=== PATIENT | female | born 1970 | race Caucasian/White ===

== ENCOUNTER 2016-10-27 20:52 | Emergency (ER) | payer OTHER ==
[~2016-10-27] VITALS: Ht 162.6 cm; Wt 56.7 kg
[~2016-10-27 20:52] MED LIST: ACYCLOVIR800 M1 PO; BACLOFEN10 M1 PO; BACTRIM DS 8001 TAB PO; BENZONATATE200 MG PO; BIAXIN FILMTAB500 MG PO; BIAXIN XL500 MG PO; BIAXIN250 MG PO; BIAXIN500 M1 PO; CELECOXIB100 MG; CICLOPIROX0.771 TOP; CYCLOBENZAPRINE10 M2 PO; DOLOPHINE10 MG PO; DULOXETINE60 MG PO; GABAPENTIN TAB600 MG PO; GABAPENTIN300 MG PO; LEVAQUIN 500MG500 MG PO; LEVAQUIN500 M1 PO; LEVAQUIN500 MG PO; LEVAQUIN750 MG PO; LIORESAL PO; MACROBID100 MG PO; MECLIZINE HCL25 MG PO; MELOXICAM7.5 M1 PO; METFORMIN HCL500 MG PO; METFORMIN500 MG PO; MORPHINE SULFAT15 M4 PO; MORPHINE SULFAT30 M3 PO; NORCO 325 MG-51 TAB PO; NORTRIPTYLINE H10 M2 PO; NUCYNTA50 MG; PERCOCET 325 MG1 TA2 PO; PERCOCET 325 MG1 TAB PO; PRAMIPEXOLE0.125 MG PO; TYLENOL ARTHRI650 M1 PO; VALACYCLOVIR1 GM PO; VALIUM 10 MG. T10 MG PO; VALIUM2 MG PO; VALIUM5 M1 PO; VALTREX1 GM PO; VITAMIN D1000 UNIT; VOLTAREN GEL1% TOP; ZOFRAN ODT4 MG PO; ZOFRAN4 M1 PO; ZOVIRAX800 MG PO
[2016-10-27 20:56] VITALS: BP 146/98
--- NOTE | 2016-10-27 21:15 | ED EAR COMPLAINT ---
History of Present Illness General Chief Complaint: Ear Complaints Stated Complaint: L EAR ACHE Source: patient Exam Limitations: no limitations Vital Signs & Intake/Output Vital Signs & Intake/Output Vital Signs Date Time Temp Pulse Resp B/P Pulse O2 O2 Flow FiO2 Ox Delivery Rate 10/278 100 Room Air 10/27 2055 100.4 95 18 146/98 100 Room Air Allergies Coded Allergies: Penicillins (Severe, HIVES 07/26/16) aspirin (Severe, ANAPHYLAXIS 07/26/16) codeine (Severe, ANAPHYLAXIS 07/26/16) Reconcile Medications Acetaminophen (Tylenol Arthritis) 650 MG TABLET.ER 1 TAB PO Q4-6 PRN PRN PAIN/ FEVER (Reported) Acyclovir 800 MG TABLET 1 TAB PO 5 TIMES A DAY shingles Baclofen 10 MG TABLET 1 TAB PO TID PAIN (Reported) Cholecalciferol (Vitamin D3) (Vitamin D) (Unknown Strength) TABLET (Unknown Dose) SUPPLEMENT (Reported) Clarithromycin (Biaxin) 250 MG TABLET 1 TAB PO BID otitis Clarithromycin (Biaxin) 500 MG TABLET 1 TAB PO BID otitis media Clarithromycin (Biaxin) 250 MG TABLET 1 TAB PO BID OTITIS MEDIA Gabapentin (Gabapentin Tab 600MG) 600 MG TAB 1 TAB PO BID PAIN (Reported) Gabapentin (Gabapentin Tab 600MG) 600 MG TAB 2 TAB PO QPM PAIN (Reported) Levofloxacin (Levaquin) 500 MG TABLET 1 TAB PO DAILY ear infection Meclizine HCl 25 MG TABLET 1 TAB PO TIDPRN PRN dizzness Meloxicam 7.5 MG TABLET 1 TAB PO BID PAIN (Reported) Metformin Hydrochloride (Metformin HCl) 500 MG TAB 1 TAB PO BID DIABETES ( Reported) Morphine Sulfate 15 MG TABLET 1 TAB PO TID PAIN (Reported) Morphine Sulfate (Morphine Sulfate ER) 30 MG TABLET.ER 1 TAB PO DAILY PAIN ( Reported) Nortriptyline HCl 10 MG CAPSULE 1 CAP PO QPM INSOMNIA (Reported) Triage Note: PT TO TRIAGE WITH C/O BILAT EAR PAIN x2DAYS 04/15. 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 HX OF OTITIS x10 A YEAR. TEMP 100.4 IN TRIAGE. Triage Nurses Notes Reviewed? 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 Patient states that symptoms are very similar to previous otitis media. Denies any active discharge and tympanic membrane is intact no trauma no fever chills difficulty swallowing or breathing Past History Travel History Traveled to [place] past 21 day No Medical History Any Pertinent Medical History? 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 No Review of Systems Review of Systems Constitutional: Reports: no symptoms. EENTM: Reports: see HPI, ear pain. Respiratory: Reports: no symptoms. Cardiovascular: Reports: no symptoms. GI: Reports: no symptoms. Genitourinary: Reports: no symptoms. Musculoskeletal: Reports: no symptoms. Skin: Reports: no symptoms. Neurological/Psychological: Reports: no symptoms. Hematologic/Endocrine: Reports: no symptoms. Immunologic/Allergic: Reports: see HPI, lymphadenopathy. All Other Systems: Reviewed and Negative Physical Exam Physical Exam General Appearance: no apparent distress, alert, comfortable Ears: Left: discharge, swelling. Comments: Well-developed well-nourished person in no acute distress HEENT: , extraocular motion intact, no nystagmus. Pupils equally round and reactive to light and accommodation. Nose is atraumatic.No swelling or edema. Right ear nontender external anatomy, unremarkable external auditory canal tympanic membrane was partially visualized due to cerumen impaction noted to be within normal limits. Left ear-nontender external anatomy noted removed external auditory canal with visualization apparent to tympanic membrane in which purulence was noted. And panic membrane was intact. Neck: Supple, mild left anterior cervical adenopathy noted, normal range of motion without pain or tenderness Back: Nontender, no CVA tenderness. Cardiovascular: Regular rate and rhythms no murmurs rubs or gallops, normal JVP Respiratory: Chest nontender. No respiratory distress.breath sounds clear to auscultation bilaterally Extremity: No edema, no calf tenderness to palpation, normal and equal pulses. Neuro: Alert oriented x3, motor sensory normal, Skin: No appreciable rash on exposed skin, skin is warm and dry. Psych: Mood and affect is normal, memory and judgment is normal. Progress Differential Diagnoses I considered the following diagnoses in my evaluation of the patient: [Otitis media, otitis externa, sinusitis, pharyngitis, mastoiditis, tympanic membrane rupture, labyrinthitis, meningitis] Plan of Care: Due to history of present illness and exam findings patient has suspicion of left-sided otitis media. Patient states that Biaxin usually resolves patient's symptoms no concerns at this time of meningitis or tympanic membrane rupture patient was strongly advised to follow up with ENT Initial ED EKG: none Departure Departure Disposition: HOME OR SELF CARE Condition: Stable Clinical Impression Primary Impression: Left otitis media Referrals: FARZAD CHAKRABORTY DO (PCP/Family) Additional Instructions: As discussed begin the prescription of Biaxin as directed for the full course. Prescriptions waiting at [facility] pharmacy. Follow up this week with your established ENT DR. CHATMAN for further evaluation treatment. If symptoms worsen return to emergency room. Begin [id number] ibuprofen or Tylenol for pain and inflammation and fevers. Departure Forms: Customer Survey General Discharge Information Prescriptions: Current Visit Scripts Clarithromycin (Biaxin) 1 TAB PO BID #14 TAB
[2016-10-27] MEDS ORDERED: BIAXIN250 MG PO (21:55)
== END 2016-10-27 22:18 ==
LOC: ERH 20:52
DX: H66.92 Otitis media, unspecified, left ear (principal)

== ENCOUNTER 2016-11-10 19:18 | Emergency (ER) | payer OTHER ==
[~2016-11-10] VITALS: Ht 162.6 cm; Wt 68.0 kg
[2016-11-10 19:26] VITALS: BP 135/87
--- NOTE | 2016-11-10 20:02 | ED GENERAL ADULT ---
History of Present Illness General Chief Complaint: General Adult Stated Complaint: PT HAS EAR PAIN AND SWOLLEN GLANDS AND DIZZY Source: patient, family, old records Exam Limitations: no limitations Vital Signs & Intake/Output Vital Signs & Intake/Output Vital Signs Date Time Temp Pulse Resp B/P Pulse O2 O2 Flow FiO2 Ox Delivery Rate 11/10 1925 97.2 112 18 135/87 97 Room Air Allergies Coded Allergies: Penicillins (Severe, HIVES 07/26/16) aspirin (Severe, ANAPHYLAXIS 07/26/16) codeine (Severe, ANAPHYLAXIS 07/26/16) Reconcile Medications Baclofen 10 MG TABLET 1 TAB PO TID MUSCLE RELAXER (Reported) Clarithromycin (Biaxin) 500 MG TABLET 1 TAB PO BID ear infection Gabapentin 600 MG TABLET 1 TAB PO 4XDAILY NERVE PAIN (Reported) Meclizine HCl 25 MG TABLET 1 TAB PO Q8 PRN dizziness Meloxicam 15 MG TABLET 1 TAB PO DAILY PAIN/INFLAMMATION (Reported) Metformin HCl 500 MG TABLET 1 TAB PO BID DM (Reported) Morphine Sulfate 15 MG TABLET 1 TAB PO TID PAIN (Reported) Morphine Sulfate (Morphine Sulfate ER) 30 MG TABLET.ER 1 TAB PO DAILY PAIN ( Reported) Nortriptyline HCl 10 MG CAPSULE 1 CAP PO QPM FIBROMYALGIA (Reported) Triage Note: PT TO ED C/O SHI EAR PAIN, L>R AND SWOLLEN GLANDS ON LEFT. STARTED LAST NIGHT. FINISHED ABX LAST WEEK FOR EAR INFECTIONS. 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 yes HPI: Patient is a 46-year-old female presents complaining of bilateral ear pain, left greater than right, and dizziness. Patient reports she has chronic ear infections, was treated 2 weeks ago for an ear infection with clarithromycin. Patient reports that she felt better and then over the past couple of days symptoms have worsened. Dizziness is currently moderate to severe. Patient had a fever up to 101F over the past 24 hours. Ear pain is severe. Patient reporting swelling in the lymph nodes to the left side of her neck. Patient denies cough, dyspnea, difficulty swallowing. (ROBERT DANIEL,RANDY) Past History Travel History Traveled to [place] past 21 day No Medical History Any Pertinent Medical History? 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 No (RANDY VELAZQUEZ) Review of Systems Review of Systems Constitutional: Reports: fever, malaise. EENTM: Reports: see HPI. Respiratory: Denies: cough, short of breath. Cardiovascular: Denies: chest pain. GI: Denies: abdominal pain, vomiting. Musculoskeletal: Reports: back pain (chronic, unchanged). Skin: Reports: no symptoms. Neurological/Psychological: Reports: headache. Hematologic/Endocrine: Denies: bruising, bleeding. Immunologic/Allergic: Reports: lymphadenopathy. (RANDY VELAZQUEZ) Physical Exam Physical Exam General Appearance: well developed/nourished, alert, awake Head: atraumatic Eyes: Bilateral: normal appearance, PERRL, EOMI. Ears, Nose, Throat: deformity of the left external auditory canal with mild erythema. Right external auditory canal and tympanic membrane normal Neck: supple, full range of motion, left anterior cervical lymphadenopathy Respiratory: normal breath sounds, chest non-tender, no respiratory distress, lungs clear Cardiovascular: tachycardia (regular rhythm, no murmur) Back: normal inspection, normal range of motion Extremities: normal inspection, normal capillary refill, normal range of motion, no edema Neurologic/Psych: awake, alert, oriented x 3, normal gait, normal mood/affect Skin: warm/dry Lymphatic: adenopathy (left anterior cervical) Core Measures ACS in differential dx? No CVA/TIA Diagnosis: No Severe Sepsis Present: No Septic Shock Present: No (RANDY VELAZQUEZ) Progress Differential Diagnoses I considered the following diagnoses in my evaluation of the patient: Otitis media, otitis externa, mastoiditis Plan of Care: Current Medications Sig/Nader Start time Last Medication Dose Stop Time Status Admin Meclizine HCl 25 MG ONCE ONE 11/10 2014 UNVr (Antivert) 11/11 2015 Patient reports that with penicillin she gets hives, swelling, dyspnea. Cephalosporins deferred secondary to this reaction. Discussed with patient using Levaquin which she has used in the past. Patient reports that she has episodes of lightheadedness and feels like she is going to pass out the last couple of times she has taken Levaquin. Will start on a higher dose of clarithromycin and a longer course of treatment, appears stable for discharge. (RANDY VELAZQUEZ) Initial ED EKG: none (RANDY VELAZQUEZ) Departure Departure Time of Disposition: 2012 Disposition: HOME OR SELF CARE Condition: Stable Clinical Impression Primary Impression: Ear infection Referrals: LURDES LINDA,FARZAD WOO DO (PCP/Family) Additional Instructions: Follow-up with your ear nose and throat doctor within 1 week for recheck and further evaluation. Call in the morning for appointment. Return to the emergency department if worsening of symptoms. 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 I have also reviewed all the pertinent lab results and diagnostic results. I agree with the findings and the plan of care as documented in the PA's/SHOP TAILOR's documentation. [X] I have reviewed the ED Record and agree with the PA's/SHOP TAILOR's documentation. [] Additions or exceptions (if any) to the PAs/SHOP TAILOR's note and plan are summarized below: [] (PAMELA LINDA,SHANNAN Lozano) Critical Care Note Critical Care Note Critical Care Time: non-applicable (RANDY VELAZQUEZ)
[2016-11-10] MEDS ORDERED: MORPHINE SULFAT15 M4 PO (20:07)
[2016-11-10] MEDS ORDERED: BACLOFEN10 M1 PO (20:07)
[2016-11-10] MEDS ORDERED: MORPHINE SULFAT30 M3 PO (20:07)
[2016-11-10] MEDS ORDERED: MELOXICAM15 M1 PO (20:07)
[2016-11-10] MEDS ORDERED: NORTRIPTYLINE H10 M2 PO (20:08)
[2016-11-10] MEDS ORDERED: METFORMIN HCL500 M3 PO (20:08)
[2016-11-10] MEDS ORDERED: GABAPENTIN600 M1 PO (20:09)
[2016-11-10] MEDS ORDERED: BIAXIN500 M1 PO (20:14)
[2016-11-10] MEDS ORDERED: MECLIZINE HCL25 MG PO (20:15)
== END 2016-11-10 20:27 ==
LOC: ERH 19:18
DX: H60.92 Unspecified otitis externa, left ear (principal)

== ENCOUNTER 2016-12-05 13:53 | Emergency (ER) | payer OTHER ==
[~2016-12-05] VITALS: Ht 162.6 cm; Wt 56.7 kg
[~2016-12-05 13:53] MED LIST changes: +GABAPENTIN600 M1 PO; +MELOXICAM15 M1 PO; +METFORMIN HCL500 M3 PO
[2016-12-05 15:19] LABS: ABSOLUTE BASOPHIL COUNT 0 /CUMM (0.0-0.2); ABSOLUTE EOSINOPHIL COUNT 0.1 /CUMM (0.0-0.7); ABSOLUTE GRANULOCYTE CT 3.4 /CUMM (1.4-6.5); ABSOLUTE LYMPH COUNT 2.5 /CUMM (1.2-3.4); ABSOLUTE MONOCYTE COUNT 0.4 /CUMM (0.10-0.60); BASOPHIL % 0.3 % (0.0-2.0); EOSINOPHIL % 1.3 % (0-5); HEMATOCRIT 43.9 % (37-47); MEAN CORPUSCULAR HGB CONC 32.3 G/DL (33.0-37.0); MEAN CORPUSCULAR VOLUME 83.8 FL (81.0-99.0); MEAN PLATELET VOLUME 8.1 FL (7.4-10.4); PLATELET COUNT 148 /CUMM (130-400); RBC DISTRIBUTION WIDTH 14.1 % (11.5-14.5); RED BLOOD CELL CT 5.24 /CUMM (4.20-5.40); WHITE BLOOD CELL COUNT 6.5 /CUMM (4.8-10.8)
--- NOTE | 2016-12-05 16:08 | ED EAR COMPLAINT ---
History of Present Illness General Chief Complaint: Ear Complaints Stated Complaint: SWOLLEN GLANDS, EARS HURT Source: patient, family Exam Limitations: no limitations Vital Signs & Intake/Output Vital Signs & Intake/Output Vital Signs Date Time Temp Pulse Resp B/P Pulse O2 O2 Flow FiO2 Ox Delivery Rate 12/05 1646 99.1 110 16 138/76 95 Room Air 12/05 1356 97.6 88 18 139/90 99 Room Air Room Air Allergies Coded Allergies: Penicillins (Severe, HIVES 07/26/16) aspirin (Severe, ANAPHYLAXIS 07/26/16) codeine (Severe, ANAPHYLAXIS 07/26/16) Reconcile Medications Baclofen 10 MG TABLET 1 TAB PO TID MUSCLE RELAXER (Reported) Clindamycin HCl 300 MG CAPSULE 1 CAP PO TID otitis media Gabapentin 600 MG TABLET 1 TAB PO 4XDAILY NERVE PAIN (Reported) Meclizine HCl 25 MG TABLET 1 TAB PO Q8 PRN dizziness Meclizine HCl 25 MG TABLET 1 TAB PO TIDPRN PRN vertigo Meloxicam 15 MG TABLET 1 TAB PO DAILY PAIN/INFLAMMATION (Reported) Metformin HCl 500 MG TABLET 1 TAB PO BID DM (Reported) Morphine Sulfate 15 MG TABLET 1 TAB PO TID PAIN (Reported) Morphine Sulfate (Morphine Sulfate ER) 30 MG TABLET.ER 1 TAB PO DAILY PAIN ( Reported) Nortriptyline HCl 10 MG CAPSULE 1 CAP PO QPM FIBROMYALGIA (Reported) Triage Note: TRIAGE: 46 Y/O FEMALE PRESENTS C/O 12.5/10 LEFT EAR PAIN. HISTORY OF LEFT EAR SURGERY - "NO MIDDLE EAR, NO EAR DRUM. 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 I KNOW I HAVE AN INFECTION NOW." Triage Nurses Notes Reviewed? yes HPI: Ms. Roblero is a 46 yo f w/ extensive medical history most significant for multiple years surgeries on the left involving the middle ear secondary to tumor presenting to the emergency department for L ear pain. She states she has recurrent ear infections on the left. Patient states that over the past 3 days she's had increased pain in the left ear, some mild discharge and subjective fevers and chills. Patient also endorses some tender anterior cervical lymphadenopathy as well as tenderness over the mastoid bone. Patient states she is multiple allergies and the only antibiotics that typically work for her is that by Bicillin, clindamycin, levofloxacin. However, last time she took levofloxacin, she endorses some dizziness associated with it. She denies chest pain, cough, diarrhea pain, nausea, vomiting, diarrhea. (JUAN COWAN MD) Past History Travel History Traveled to [place] past 21 day No Medical History Any Pertinent Medical History? 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 No (JUAN COWAN MD) Review of Systems Review of Systems Constitutional: Reports: chills, fever. EENTM: Reports: ear discharge, ear pain, hearing changes. Respiratory: Reports: no symptoms. Cardiovascular: Reports: no symptoms. GI: Reports: no symptoms. Genitourinary: Reports: no symptoms. Musculoskeletal: Reports: no symptoms. Skin: Reports: no symptoms. Neurological/Psychological: Reports: no symptoms. Hematologic/Endocrine: Reports: no symptoms. Immunologic/Allergic: Reports: no symptoms. All Other Systems: Reviewed and Negative (JUAN COWAN MD) Physical Exam Physical Exam General Appearance: well developed/nourished, mild distress Head: atraumatic, L mastoid TTP Eyes: Bilateral: normal appearance, PERRL, EOMI. Ears: Left: discharge, tenderness, other (s/p middle ear/typanum excisio). Right: canal normal, Tympanic normal. Mouth/Throat: normal mouth inspection, pharynx normal, L anterior cervical adenopathy and TTP Neck: normal inspection, supple Cardiovascular/Respiratory: normal breath sounds, regular rate/rhythm Gastrointestinal: soft, nontender Back: normal inspection Neurologic/Psych: awake, alert, oriented x 3, normal mood/affect Skin: intact, normal color, warm/dry (JUAN COWAN MD) Progress Differential Diagnoses I considered the following diagnoses in my evaluation of the patient: otitis media, otitis externa, mastoiditis, intracranial infection, meningitis Plan of Care: Orders Procedure Date/time Status CBC WITHOUT DIFFERENTIAL 12/05 145 Complete BASIC METABOLIC PANEL 12/05 1458 Complete Laboratory Tests 12/05/16 1510: Anion Gap 13, Estimated GFR > 60, BUN/Creatinine Ratio 8.6, Glucose 304 H, Calcium 10.1, CBC w Diff NO MAN DIFF REQ, RBC 5.24, MCV 83.8, MCH 27.0, RDW 14.1 , MPV 8.1, Gran % 53.0, Lymphocytes % 39.2, Monocytes % 6.2, Eosinophils % 1.3, Basophils % 0.3, Absolute Granulocytes 3.4, Absolute Lymphocytes 2.5, Absolute Monocytes 0.4, Absolute Eosinophils 0.1, Absolute Basophils 0, PUBS MCHC 32.3 L Patient is generally well-appearing with abnormal ear anatomy given her extensive surgical history in the left ear. She does not have a tympanic membrane or middle ear bones. How however on the inner portion more medial surface superiorly, there is noted to have some pale right serosanguineous fluid with some exudative quality. Patient also had tenderness over the mastoid bone as well as some significant anterior cervical adenopathy which is also tender. Normal oral exam and posterior pharynx without evidence of pharyngitis or uvular deviation. Patient has completed completely normal range of motion of her neck without any pain or stiffness. Patient is borderline febrile here however believe this is related to her otitis media. Initially the patient refused the CT scan and wanted to leave AGAINST MEDICAL ADVICE. After I spoke to her as well as , patient still continued to refuse CT. However, her discussed it with her yet again in the waiting room and convinced her to come back inside to obtain the CT and rule out a serious intracranial infection. CT obtained and does not show any evidence of mastoiditis or other fluid collections concerning for spread of l infection. Patient later endorsed some mild episodic vertigo that happens over the past week. She says she is taking meclizine before when she develops vertigo secondary to her ongoing problems and it has worked well for her. Patient given antibiotics clindamycin for 2 weeks with instructions to follow up with her ENT in approximately one week. Patient also given a prescription for meclizine for episodic vertigo. (CHAPO LINDA,JUAN) Initial ED EKG: none (JUAN COWAN MD) Departure Departure Time of Disposition: 1645 Disposition: HOME OR SELF CARE Condition: Stable Clinical Impression Primary Impression: Left acute otitis media Referrals: PALMER DELEON,FARZAD Keys (PCP/Family) Additional Instructions: Take the full course of antibiotics as prescribed. Given her extensive surgical history and repeated ear infection, we have given you a longer course of antibiotics for a total of 2 weeks. I would recommend that you follow-up with your ENT in approximately 1 week from today. If you have worsening pain, headache, changes in vision or weakness, please return to the emergency department for further evaluation. Departure Forms: Customer Survey General Discharge Information Prescriptions: Current Visit Scripts Clindamycin HCl 1 CAP PO TID 14 Days Meclizine HCl 1 TAB PO TIDPRN PRN vertigo #20 TAB (JUAN COWAN MD) Resident Co-Sign Statement Statement: ED Attending supervision documentation- x I saw and evaluated the patient. I have also reviewed all the pertinent lab results and diagnostic results. I agree with the findings and the plan of care as documented in the Resident's documentation. [] I have reviewed the ED Record and agree with the Resident's documentation. [] Additions or exceptions (if any) to the Resident's note and plan are summarized below: [] (MELISSA LINDA,ARMANDO)
--- NOTE | 2016-12-05 16:35 | CT SCAN REPORT ---
EXAMINATION: CT HEAD WITHOUT CONTRAST CLINICAL INFORMATION: Left-sided ear pain, swelling and tenderness to palpation over the mastoid bone. History of prior left-sided extensive mastoidectomy. COMPARISON: MRI brain without contrast 05/07/2010. TECHNIQUE: Contiguous axial imaging was performed from the skull base to vertex without intravenous administration of contrast. No intravenous contrast was administered. The patient reportedly has a contrast allergy and refused intravenous contrast. DLP: 600 mGy-cm FINDINGS: No acute intracranial abnormality. No acute intracranial hemorrhage, mass or mass effect or abnormal extra-axial fluid collections. The density within the dural venous sinuses is within normal limits. The ventricles are normal in size, without hydrocephalus. There are no focal areas of hypoattenuation within a vascular distribution to suggest acute transcortical ischemia. The basilar cisterns are patent. Evaluation of the calvarium demonstrates postsurgical changes related to prior left-sided mastoidectomy. There is no significant overlying soft tissue swelling or skin thickening. There are no visible subcutaneous fluid collections along the left temporal bone. No visible cortical destruction or significant periosteal reaction is identified. No acute calvarial abnormality is identified. The imaged paranasal sinuses and right-sided mastoid air cells are well aerated. IMPRESSION: No acute intracranial abnormality. Postsurgical changes related to prior left-sided mastoidectomy. No significant soft tissue swelling or overlying skin thickening. No visible subcutaneous fluid collections adjacent to or along the left temporal bone. No visible cortical destruction or significant periosteal reaction.
[2016-12-05 16:46] VITALS: BP 138/76
[2016-12-05] MEDS ORDERED: MECLIZINE HCL25 MG PO (16:49)
[2016-12-05] MEDS ORDERED: CLINDAMYCIN HC300 M1 PO (16:49)
== END 2016-12-05 16:57 ==
LOC: ERH 13:53
PROVIDERS: Emergency Medicine
DX: H66.92 Otitis media, unspecified, left ear (principal); R50.9 Fever, unspecified; R59.1 Generalized enlarged lymph nodes
CPT/HCPCS: 96374

== ENCOUNTER 2017-02-01 22:27 | Emergency (ER) | payer OTHER ==
[~2017-02-01] VITALS: Ht 165.1 cm; Wt 59.0 kg
[~2017-02-01 22:27] MED LIST changes: +CLINDAMYCIN HC300 M1 PO
--- NOTE | 2017-02-01 22:47 | ED EAR COMPLAINT ---
History of Present Illness General Chief Complaint: Ear Complaints Stated Complaint: EAR PAIN Source: patient Exam Limitations: no limitations Vital Signs & Intake/Output Vital Signs & Intake/Output Vital Signs Date Time Temp Pulse Resp B/P B/P Pulse O2 O2 Flow FiO2 Mean Ox Delivery Rate 02/01 2313 98.2 80 17 144/80 98 Room Air Room Air ED Intake and Output 02/02 0000 02/01 1200 Intake Total 0 Output Total Balance 0 Intake, Oral 0 Patient 130 lb Weight Allergies Coded Allergies: Penicillins (Severe, HIVES 02/01/17) aspirin (Severe, ANAPHYLAXIS 02/01/17) codeine (Severe, ANAPHYLAXIS 02/01/17) Reconcile Medications Baclofen 10 MG TABLET 1 TAB PO TID MUSCLE RELAXER (Reported) Clarithromycin (Biaxin) 500 MG TABLET 1 TAB PO BID OTITIS MEDIA Clindamycin HCl 300 MG CAPSULE 1 CAP PO TID otitis media Gabapentin 600 MG TABLET 1 TAB PO 4XDAILY NERVE PAIN (Reported) Meclizine HCl 25 MG TABLET 1 TAB PO Q8 PRN dizziness Meclizine HCl 25 MG TABLET 1 TAB PO TIDPRN PRN vertigo Meclizine HCl 25 MG TABLET 1 TAB PO TIDPRN PRN DIZZINESS Meloxicam 15 MG TABLET 1 TAB PO DAILY PAIN/INFLAMMATION (Reported) Metformin HCl 500 MG TABLET 1 TAB PO BID DM (Reported) Morphine Sulfate 15 MG TABLET 1 TAB PO TID PAIN (Reported) Morphine Sulfate (Morphine Sulfate ER) 30 MG TABLET.ER 1 TAB PO DAILY PAIN ( Reported) Nortriptyline HCl 10 MG CAPSULE 1 CAP PO QPM FIBROMYALGIA (Reported) Triage Note: PT TO TRIAGE WITH LEFT EAR PAIN, AND SWELLING OF GLANDS. PT HAD TUMOR REMOVED FROM EAR YEARS PRIOR AND IS SUSCEPTABLE TO EAR INFECTION, LOW GRADE FEVERS AT HOME Triage Nurses Notes Reviewed? 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 No (OZ RUBY) Review of Systems Review of Systems Constitutional: Reports: no symptoms. EENTM: Reports: see HPI, ear pain. Respiratory: Reports: no symptoms. Cardiovascular: Reports: no symptoms. GI: Reports: no symptoms. Genitourinary: Reports: no symptoms. Musculoskeletal: Reports: no symptoms. Skin: Reports: no symptoms. Neurological/Psychological: Reports: no symptoms. Hematologic/Endocrine: Reports: no symptoms. Immunologic/Allergic: Reports: no symptoms. All Other Systems: Reviewed and Negative (OZ RUBY) Physical Exam Physical Exam General Appearance: no apparent distress, alert, comfortable Ears: Left: Tympanic red. Comments: Well-developed well-nourished person in no acute distress HEENT:extraocular motion intact, no nystagmus. Pupils equally round and reactive to light and accommodation. Nose is atraumatic. LEFT EAR- NOTED EXTRACTED External auditory canal and Tympanic membranes erythematous and mild discharge. Pharynx normal. No swelling or edema. Neck: Supple, no lymphadenopathy, normal range of motion without pain or tenderness Abdomen: Soft, nontender nondistended, no appreciable organomegaly. Normal bowel sounds. No ascites Extremity: No edema, no calf tenderness to palpation, normal and equal pulses. Neuro: Alert oriented x3, motor sensory normal, Skin: No appreciable rash on exposed skin, skin is warm and dry. Psych: Mood and affect is normal, memory and judgment is normal. (OZ RUBY) Progress Differential Diagnoses I considered the following diagnoses in my evaluation of the patient: [Otitis media, otitis externa, tympanic membrane rupture, mastoiditis, sepsis] Plan of Care: At this time there is concern on physical exam findings of left otitis media. Initial ED EKG: none (OZ RUBY) Departure Departure Disposition: HOME OR SELF CARE Condition: Stable Clinical Impression Primary Impression: Left otitis media Referrals: FARZAD CHAKRABORTY DO (PCP/Family) Additional Instructions: As discussed begin the prescription of Biaxin as directed for the full course. Begin prescription meclizine for your symptoms. If symptoms worsen return to emergency room. PRESCRIPTIONS waiting at [facility]. Follow-up with the ENT doctor and neurologist as directed Departure Forms: Customer Survey General Discharge Information Prescriptions: Current Visit Scripts Clarithromycin (Biaxin) 1 TAB PO BID #20 TAB Meclizine HCl 1 TAB PO TIDPRN PRN DIZZINESS #21 TAB (OZ RUBY) PA/GRAIN CLEANER Co-Sign Statement Statement: ED Attending supervision documentation- [] I saw and evaluated the patient. I have also reviewed all the pertinent lab results and diagnostic results. I agree with the findings and the plan of care as documented in the PA's/GRAIN CLEANER's documentation. [x] I have reviewed the ED Record and agree with the PA's/GRAIN CLEANER's documentation. [] Additions or exceptions (if any) to the PAs/GRAIN CLEANER's note and plan are summarized below: [] (GERARD LINDA,CHANDU Woodard)
[2017-02-01] MEDS ORDERED: BIAXIN500 M1 PO (22:55)
[2017-02-01] MEDS ORDERED: MECLIZINE HCL25 MG PO (22:57)
[2017-02-01 23:13] VITALS: BP 144/80
== END 2017-02-01 23:13 ==
LOC: ERH 22:27
DX: H66.92 Otitis media, unspecified, left ear (principal)

== ENCOUNTER 2017-12-04 15:22 | Emergency (ER) | payer OTHER ==
[~2017-12-04 15:22] MED LIST changes: +BENTYL10 M1 PO; +OFLOXACIN5 M1 OT; +REGLAN10 M1 PO; +VITAMIN D1000 UNIT PO; +ZOFRAN4 M2 PO
[2017-12-04 15:30] VITALS: BP 131/80
[2017-12-04] MEDS ORDERED: CLINDAMYCIN HC300 M1 PO (16:07)
[2017-12-04] MEDS ORDERED: ZOFRAN ODT4 M1 SL (16:07)
[2017-12-04] MEDS ORDERED: MECLIZINE HCL25 MG PO (16:07)
--- NOTE | 2017-12-04 16:07 | ED EAR COMPLAINT ---
History of Present Illness General Chief Complaint: Ear Complaints Stated Complaint: L EAR PAIN? DIZZINESS/NAUSEA X2DAYS Source: patient, old records Exam Limitations: no limitations Vital Signs & Intake/Output Vital Signs & Intake/Output Vital Signs Date Time Temp Pulse Resp B/P B/P Pulse O2 O2 Flow FiO2 Mean Ox Delivery Rate 12/04 1530 98.2 109 22 131/80 98 Room Air Allergies Coded Allergies: Penicillins (Severe, HIVES 05/09/17) aspirin (Severe, ANAPHYLAXIS 05/09/17) codeine (Severe, ANAPHYLAXIS 05/09/17) fish derived (Severe, ANAPHYLAXIS 05/26/17) shellfish derived (Severe, ANAPHYLAXIS 05/26/17) Reconcile Medications Baclofen 10 MG TABLET 1 TAB PO TID MUSCLE RELAXER (Reported) Cholecalciferol (Vitamin D3) (Vitamin D) 1,000 UNIT TABLET 1 TAB PO DAILY SUPPLEMENT (Reported) Dicyclomine Hydrochloride (Bentyl) 10 MG CAPSULE 1 CAP PO TID PRN pain Gabapentin 600 MG TABLET 1 TAB PO 4XDAILY NERVE PAIN (Reported) Metformin HCl 500 MG TABLET 1 TAB PO BID DM (Reported) Metoclopramide HCl (Reglan) 10 MG TABLET 1 TAB PO 4 TIMES/DAY PRN nausea 30 minutes before meals and bedtime Morphine Sulfate 15 MG TABLET 1 TAB PO TID PAIN (Reported) Morphine Sulfate (Morphine Sulfate ER) 30 MG TABLET.ER 1 TAB PO DAILY PAIN ( Reported) Nortriptyline HCl 10 MG CAPSULE 1 CAP PO QPM FIBROMYALGIA (Reported) Ofloxacin 0.3 % DROPS 5 GTT OT BID otitis Triage Note: PER PT ANOTHER EAR INFECTION MORPHINE NOT HELPING, PAIN X 2 DAYS Triage Nurses Notes Reviewed? 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 Subjective fevers at home, afebrile here. Similar to past episodes. No meningeal signs or evidence of meninigitis. Denies chills, vomiting, chest pain, neck stiffness, photophobia, headache, abdominal pain, diarrhea, dysuria. Past History Travel History Traveled to [place] past 21 day No Medical History Any Pertinent Medical History? see below for history Neurological: dizziness, migraine, SHINGLES EENT: allergies, epistaxis, hearing loss, otitis media, sinusitis Cardiovascular: NONE Respiratory: asthma, bronchitis Gastrointestinal: irritable bowel syndrome Hepatic: NONE Renal: NONE Musculoskeletal: chronic back pain, fibromyalgia, sciatica Psychiatric: anxiety Endocrine: diabetes, Patito's thyroiditis Blood Disorders: NONE Cancer(s): NONE SPECIAL POLICE OFFICER/Reproductive: NONE Surgical History Surgical History: EAR SX no TM on left Psychosocial History What is your primary language Cameroonian Tobacco Use: Never used Family History Hx Contributory? No Review of Systems Review of Systems Constitutional: Reports: no symptoms. EENTM: Reports: no symptoms. Respiratory: Reports: no symptoms. Cardiovascular: Reports: no symptoms. GI: Reports: no symptoms. Genitourinary: Reports: no symptoms. Musculoskeletal: Reports: no symptoms. Skin: Reports: no symptoms. Neurological/Psychological: Reports: no symptoms. Hematologic/Endocrine: Reports: no symptoms. Immunologic/Allergic: Reports: no symptoms. All Other Systems: Reviewed and Negative Physical Exam Physical Exam General Appearance: well developed/nourished, no apparent distress, mild distress Head: atraumatic, normal appearance Eyes: Bilateral: normal appearance. Ears: Left: erythema, swelling, other (surgical changes). Right: canal normal, Tympanic normal. Nose: normal inspection Mouth/Throat: normal mouth inspection, pharynx normal Neck: normal inspection, supple Cardiovascular/Respiratory: normal breath sounds, regular rate/rhythm Back: normal inspection Neurologic/Psych: awake, alert, oriented x 3, normal mood/affect Skin: intact, normal color, warm/dry Progress Differential Diagnoses I considered the following diagnoses in my evaluation of the patient: otitis media, otitis external, malignant otitis, meniere's, meningitis, mass, trauma. Plan of Care: Will give antibiotics and Meclizine, follow up with her ENT. Initial ED EKG: none Departure Departure Disposition: HOME OR SELF CARE Condition: Stable Clinical Impression Primary Impression: Acute otitis media Referrals: Ariel Champion DO (PCP/Family) Additional Instructions: Follow up with your ENT. Departure Forms: Customer Survey General Discharge Information Prescriptions: Current Visit Scripts Clindamycin HCl 1 CAP PO TID #21 CAP Meclizine HCl 1 TAB PO TIDPRN #30 TAB Ondansetron (Zofran Odt) 1 TAB SL TID #15 TAB
== END 2017-12-04 16:24 ==
LOC: ERH 15:22
DX: H66.92 Otitis media, unspecified, left ear (principal)